=== PATIENT | male | born 1975 | race Caucasian/White ===

== ENCOUNTER → 2021-01-17 | Outpatient (CLI) | payer BC ==
[~2021-01-17] MED LIST: AMLODIPINE BESYL5 MG PO; HYGROTON TAB 2525 MG PO; LISINOPRIL40 MG PO; OMEPRAZOLE40 MG PO; TOPROL XL25 MG PO
[2021-01-17 14:43] LABS: HEMOGLOBIN 15.1 gm/dl (14.0-17.5); RED BLOOD COUNT 5.33 M/UL (4.20-5.50); WHITE BLOOD COUNT 13.2 K/UL (4.5-11.0)
[2021-01-18 09:13] LABS: COMPLEMENT C3, SERUM 165 mg/dL (82-167); COMPLEMENT C4, SERUM 31 mg/dL (12-38); RHEUMATOID ARTHRITIS FACTOR <10.0 IU/mL (0.0-13.9)
[2021-01-19 15:10] LABS: ANTI-DSDNA ANTIBODIES <1 IU/mL (0-9); ANTICHROMATIN ANTIBODIES <0.2 AI (0.0-0.9)
[2021-01-21 00:11] LABS: CCP ANTIBODIES IGG/IGA 4 units (0-19)
== END ==
LOC: LAB 13:34
PROVIDERS: Nurse Practitioner Family
DX: M25.562 Pain in left knee (principal)
CPT/HCPCS: 36415; 84550; 85027; 85652; 86038; 86140; 86160; 86200; 86225; 86431

== ENCOUNTER 2021-12-01 10:44 | Emergency (ER) | payer BC ==
[2021-12-01 11:32] LABS: HEMOGLOBIN 14.9 gm/dl (14.0-17.5); RED BLOOD COUNT 5.28 M/UL (4.20-5.50); WHITE BLOOD COUNT 7.6 K/UL (4.5-11.0)
[2021-12-01 12:00] LABS: BUN/CREATININE RATIO 15 (0-10)
== END 2021-12-01 14:30 | disposition home or self-care (01) ==
LOC: ER1 10:44
PROVIDERS: Physician Assistant
DX: R07.89 Other chest pain (principal); R00.2 Palpitations; E11.9 Type 2 diabetes mellitus without complications; E78.5 Hyperlipidemia, unspecified; I10 Essential (primary) hypertension; K21.9 Gastro-esophageal reflux disease without esophagitis
CPT/HCPCS: 71045; 80053; 82550; 82553; 83690; 84484; 85025; 93005; 99285

== ENCOUNTER → 2021-12-01 | Outpatient (CLI) | payer BC | LOC: HEART 5 14:52 | DX: R00.2 Palpitations (principal) ==